=== PATIENT | female | born 1995 ===

== ENCOUNTER 2019-03-21 17:38 | Emergency (ER) | payer SELFPAY ==
--- NOTE | 2019-03-21 18:59 | EDM.PDOC ---
ED HPI GENERAL MEDICAL PROBLEM - General Chief Complaint: ENT Problem Stated Complaint: STREP Time Seen by Provider: 03/21/19 18:58 Source of Information: Reports: Patient History Limitations: Reports: No Limitations - History of Present Illness INITIAL COMMENTS - FREE TEXT/NARRATIVE: HISTORY AND PHYSICAL: History of present illness: Patient is a 23-year-old male presents to the ED with complaint of sore throat x2 weeks. Patient states that she has had a slight cough but denies any chest pain, shortness of breath, fevers, chills, nausea, vomiting, diarrhea. Patient is notably although she cannot tell me how far along she is and has not received any care. She denies any abdominal pain/cramping or vaginal bleeding or discharge or dysuria. Review of systems: As per history of present illness and below otherwise all systems reviewed and negative. Past medical history: As per history of present illness and as reviewed below otherwise noncontributory. Surgical history: As per history of present illness and as reviewed below otherwise noncontributory. Social history: No reported history of drug or alcohol abuse. Family history: As per history of present illness and as reviewed below otherwise noncontributory. Physical exam: General: Patient sitting comfortably in no acute distress and nontoxic appearing HEENT: Atraumatic, normocephalic, pupils reactive, negative for conjunctival pallor or scleral icterus, mucous membranes moist, throat clear, neck supple, nontender, trachea midline. No meningeal signs. Lungs: Clear to auscultation, breath sounds equal bilaterally, chest nontender. Heart: S1S2, regular, negative for clicks, rubs, or overt murmur. Abdomen: Soft, nondistended, nontender. Negative for masses or hepatosplenomegaly. Negative for costovertebral tenderness. No rigidity, rebound , guarding. Pelvis: Stable nontender. Genitourinary: Deferred. Rectal: Deferred. Extremities: Atraumatic, negative for cords or calf pain. Neurovascular unremarkable. Neuro: Awake, alert, oriented. Cranial nerves II through XII unremarkable. Cerebellum unremarkable. Motor and sensory unremarkable throughout. Exam nonfocal. Notes: Diagnostics: Strep Therapeutics: None Prescriptions: none Impression: Pharyngitis Plan: Take Tylenol and use lozenges as discussed Follow-up with [facility] Return to ED as needed as discussed Definitive disposition and diagnosis as appropriate pending reevaluation and review of above. Throat Pain Score (Numeric/FACES): 6 - Related Data Allergies Allergy/AdvReac Type Severity Reaction Status Date / Time No Known Allergies Allergy Verified 03/21/19 18:02 Home Meds: Home Meds . [No Known Home Meds] 03/21/19 [History] Past Medical History - Infectious Disease History Infectious Disease History: Reports: None - Past Surgical History Female Surgical History: Reports: Section Social & Family History - Family History Family Medical History: Noncontributory - Tobacco Use Smoking Status *Q: Never Smoker - Caffeine Use Caffeine Use: Reports: Soda - Recreational Drug Use Recreational Drug Use: No ED ROS ENT - Review of Systems Review Of Systems: Comprehensive ROS is negative, except as noted in HPI. ED EXAM, ENT - Physical Exam Exam: See Below (see Dictation) Course - Vital Signs Last Recorded V/S: Last Vital Signs Temp 97.5 F 03/21/19 19:04 Pulse 88 03/21/19 19:04 Resp 18 03/21/19 19:04 BP 130/60 03/21/19 19:04 Pulse Ox 97 03/21/19 19:04 - Orders/Labs/Meds Orders: Active Orders 24 hr Category Date Time Status CULTURE STREP A CONFIRMATION [RM] Stat Lab 03/21/19 18:00 Results STREP SCRN A RAPID W CULT CONF [RM] Stat Lab 03/21/19 18:00 Results Departure - Departure Time of Disposition: 18:58 Disposition: Home, Self-Care 01 Condition: Good Clinical Impression: Pharyngitis - Discharge Information Instructions: Pharyngitis, [id number] Referrals: PCP,None [Primary Care Provider] - Forms: ED Department Discharge Additional Instructions: The following information is given to patients seen in the emergency department who are being discharged to home. This information is to outline your options for follow-up care. We provide all patients seen in our emergency department with a follow-up referral. The need for follow-up, as well as the timing and circumstances, are variable depending upon the specifics of your emergency department visit. If you don't have a primary care physician on staff, we will provide you with a referral. We always advise you to contact your personal physician following an emergency department visit to inform them of the circumstance of the visit and for follow-up with them and/or the need for any referrals to a consulting specialist. The emergency department will also refer you to a specialist when appropriate. This referral assures that you have the opportunity for follow-up care with a specialist. All of these measure are taken in an effort to provide you with optimal care, which includes your follow-up. Under all circumstances we always encourage you to contact your private physician who remains a resource for coordinating your care. When calling for follow-up care, please make the office aware that this follow-up is from your recent emergency room visit. If for any reason you are refused follow-up, please contact the [facility] Emergency Department at and asked to speak to the emergency department charge nurse. [facility] [address] [place] [id number] [facility] Primary Care - [address] [id number] Take Tylenol and use lozenges as discussed Follow-up with [facility] Return to ED as needed as discussed Sepsis Event Note - Evaluation Sepsis Screening Result: No Definite Risk - Focused Exam Vital Signs: Vital Signs Temp Pulse Resp BP Pulse Ox 03/21/19 19:04 97.5 F 88 18 130/60 97 03/21/19 18:03 97.2 F 18 Date Exam was Performed: 03/21/19 Time Exam was Performed: 19:14 - My Orders Last 24 Hours: My Active Orders 03/21/19 18:00 CULTURE STREP A CONFIRMATION [RM] Stat STREP SCRN A RAPID W CULT CONF [] Stat - Assessment/Plan Last 24 Hours: My Active Orders 03/21/19 18:00 CULTURE STREP A CONFIRMATION [RM] Stat STREP SCRN A RAPID W CULT CONF [] Stat
== END 2019-03-21 19:10 | disposition home or self-care (01) ==
LOC: MW.ED 17:38
DX: O99.513 Diseases of the respiratory system complicating pregnancy, third trimester (principal); J02.9 Acute pharyngitis, unspecified
CPT/HCPCS: 87081; 87880-QW; 99283

== ENCOUNTER 2019-04-20 21:51 | Observation (INO) | payer MEDICAID | END 2019-04-20 23:45 | disposition home or self-care (01) | LOC: MW.OB 21:51 | PROVIDERS: ADMIT Obstetrics & Gynecology; ATTEND Obstetrics & Gynecology | DX: O47.9 False labor, unspecified (principal); Z3A.00 Weeks of gestation of pregnancy not specified | CPT/HCPCS: 59025 ==

== ENCOUNTER 2019-04-21 14:10 | Inpatient (IN) | payer MEDICAID ==
[2019-04-21] MEDS ORDERED: Citric Acid/Sodium Citrate Solution 30 ML Cup PO ONE (14:11)
[2019-04-21] MEDS ORDERED: Sodium Chloride 0.9% 10 ML Syringe FLUSH PRN (14:11)
[2019-04-21] MEDS ORDERED: Sodium Chloride 0.9% 10 ML SDV IV PRN (14:11)
[2019-04-21] MEDS ORDERED: Sodium Chloride 0.9% 2.5 ML Syringe FLUSH PRN (14:11)
[2019-04-21] MEDS ORDERED: Oxytocin/0.9 % Sodium Chloride 30 UNIT/500 ML BAG IV SCH (14:15)
[2019-04-21] MEDS ORDERED: ceFAZolin 2 GM in Premix Bag 1 BAG IV ONE (14:17)
[2019-04-21] MEDS ORDERED: Citric Acid/Sodium Citrate Solution 30 ML Cup ONE (14:30)
[2019-04-21] MEDS ORDERED: Phenylephrine/Normal Saline 100 MCG/ML 10 ML Syringe ONE (14:35)
[2019-04-21] MEDS ORDERED: Morphine PF 10 MG/10 ML SDV ONE (14:35)
[2019-04-21] MEDS ORDERED: Sodium Chloride 0.9% 20 ML ONE (14:35)
[2019-04-21] MEDS ORDERED: ceFAZolin 1 GM Vial ONE (14:35)
[2019-04-21] MEDS ORDERED: Oxytocin 10 Units/1 ML SDV ONE (14:38)
[2019-04-21] MEDS ORDERED: Ketorolac 30 MG/ML SDV ONE (14:38)
[2019-04-21] MEDS ORDERED: Ondansetron 4 MG/2 ML SDV ONE (14:38)
[2019-04-21] MEDS ORDERED: Acetaminophen/oxyCODONE 325-5 MG Tab PO PRN ×2 (14:50→17:10)
--- NOTE | 2019-04-21 14:50 | PCM.PREANE ---
Preanesthetic Assessment - Anesthesia/Transfusion/Family Hx Anesthesia History: Prior Anesthesia Without Reaction Family History of Anesthesia Reaction: No - Physical Assessment NPO Status Date: 04/21/19 NPO Status Time: 10:00 Height: 1.6 m Weight: 74.843 kg ASA Class: 1E - Allergies Allergies/Adverse Reactions: Allergies Allergy/AdvReac Type Severity Reaction Status Date / Time No Known Allergies Allergy Verified 04/20/19 22:05 - Acknowledgements Anesthesia Type Planned: Spinal Pt an Appropriate Candidate for the Planned Anesthesia: Yes Alternatives and Risks of Anesthesia Discussed w Pt/Guardian: Yes Pt/Guardian Understands and Agrees with Anesthesia Plan: Yes Additional Comments: Patient reports she has a heart murmur, and a procedure done while an infant. She reports no symptoms, and has an active lifestyle. Plan SAB anesthesia.Jossie Mandujano CRNA PreAnesthesia Questionnaire - Infectious Disease History Infectious Disease History: Reports: None - Past Surgical History Female Surgical History: Reports: Section - HOME MEDS Home Medications: Home Meds . [No Known Home Meds] 03/21/19 [History] - CURRENT (IN HOUSE) MEDS Current Meds: Current Medications Lactated Ringer's (Ringers, Lactated) 1,000 mls @ 500 mls/hr IV BOLUS [place] Oxytocin/Sodium Chloride (Oxytocin 30 Unit/500 Ml-Ns) 30 unit in 500 mls @ 250 mls/hr IV TITRATE [place] Sodium Chloride (Saline Flush) 10 ml FLUSH ASDIRECTED PRN PRN Reason: Keep Vein Open Sodium Chloride (Saline Flush) 2.5 ml FLUSH ASDIRECTED PRN PRN Reason: Keep Vein Open Sodium Chloride (Normal Saline) 10 ml IV ASDIRECTED PRN PRN Reason: IV Use Discontinued Medications Cefazolin Sodium (Ancef) Confirm Administered Dose 2 gm .ROUTE .STK-MED ONE Stop: 04/21/19 14:36 Citric Acid/Sodium Citrate (Bicitra Solution) 30 ml PO ONETIME ONE Stop: 04/21/19 14:12 Citric Acid/Sodium Citrate (Bicitra Solution) Confirm Administered Dose 30 ml .ROUTE .STK-MED ONE Stop: 04/21/19 14:31 Cefazolin Sodium/Dextrose 2 gm (/ Premix) 50 mls @ 100 mls/hr IV ONETIME ONE Stop: 04/21/19 14:46 Sodium Chloride (Normal Saline) Confirm Administered Dose 20 mls @ as directed .ROUTE .STK-MED ONE Stop: 04/21/19 14:36 Ketorolac Tromethamine (Toradol) Confirm Administered Dose 30 mg .ROUTE .STK- MED ONE Stop: 04/21/19 14:39 Morphine Sulfate (Duramorph Pf) Confirm Administered Dose 10 mg .ROUTE .STK-MED ONE Stop: 04/21/19 14:36 Ondansetron HCl (Zofran) Confirm Administered Dose 4 mg .ROUTE .STK-MED ONE Stop: 04/21/19 14:39 Oxytocin (Pitocin) Confirm Administered Dose 10 unit .ROUTE .STK-MED ONE Stop: 04/21/19 14:39 Phenylephrine HCl (Phenylephrine In Ns 100 Mcg/Ml) Confirm Administered Dose 4 mg .ROUTE .STK-MED ONE Stop: 04/21/19 14:36
[2019-04-21] MEDS ORDERED: Nalbuphine 10 MG/1 ML Vial IVPUSH PRN (14:51)
[2019-04-21] MEDS ORDERED: Naloxone 0.4 MG/ML Syringe IVPUSH PRN (14:51)
[2019-04-21] MEDS ORDERED: diphenhydrAMINE 50 MG/ML SDV IVPUSH PRN ×2 (14:51→17:10)
[2019-04-21] MEDS: Lactated Ringers 1,000 ML IV SCH ×3 (15:20→20:46)
--- NOTE | 2019-04-21 15:47 | PCM.LDHP ---
L&D History of Present Illness - General Date of Service: 04/21/19 Admit Problem/Dx: Patient Status Order with Admit Dx/Problem 04/21/19 14:15 Patient Status [ADT] Routine Admission Diagnosis/Problem Admission Diagnosis/Problem Source of Information: Patient History Limitations: Reports: No Limitations - History of Present Illness Improves with: Reports: None Worsens with: Reports: None Associated Symptoms: Reports: N - Related Data Allergies/Adverse Reactions: Allergies Allergy/AdvReac Type Severity Reaction Status Date / Time No Known Allergies Allergy Verified 04/20/19 22:05 Home Medications: Home Meds . [No Known Home Meds] 03/21/19 [History] Past Medical History Cardiovascular History: Reports: Heart Murmur, Stents Other Cardiovascular History: stents x 2 when baby Other OB/BYN History: C/S x 1 for breech - Infectious Disease History Infectious Disease History: Reports: None - Past Surgical History Female Surgical History: Reports: Section Social & Family History - Family History Family Medical History: Noncontributory - Tobacco Use Smoking Status *Q: Never Smoker - Caffeine Use Caffeine Use: Reports: Soda - Recreational Drug Use Recreational Drug Use: No H&P Review of Systems - Review of Systems: Review Of Systems: See Below General: Reports: No Symptoms HEENT: Reports: No Symptoms Pulmonary: Reports: No Symptoms Cardiovascular: Reports: No Symptoms Gastrointestinal: Reports: No Symptoms Genitourinary: Reports: No Symptoms Musculoskeletal: Reports: No Symptoms Skin: Reports: No Symptoms Psychiatric: Reports: No Symptoms Neurological: Reports: No Symptoms Hematologic/Lymphatic: Reports: No Symptoms Immunologic: Reports: No Symptoms L&D Exam - Exam Exam: See Below - Vital Signs Weight: 74.843 kg - OB Specific Fundal Height In cm: 37 Contraction Intensity: Mild to Moderate - Crow Score Crow Score Cervix Position: Anterior Crow Score Consistency: Soft Crow Score Effacement: 51-70% Crow Score Dilation: 1-2 cm Crow Score Infant's Station: -3 Crow Score Total: 7 - Exam General: Alert, Oriented HEENT: PERRLA, Conjunctiva Clear, EACs Clear, EOMI, Hearing Intact, Mucosa Moist & [place], Nares Patent, Normal Nasal Septum, Posterior Pharynx Clear, TMs Clear Neck: Supple, Trachea Midline Lungs: Clear to Auscultation, Normal Respiratory Effort Cardiovascular: Regular Rate, Regular Rhythm GI/Abdominal Exam: Normal Bowel Sounds, Soft, Non-Tender, No Organomegaly, No Distention, No Abnormal Bruit, No Mass, Pelvis Stable Rectal Exam: Normal Exam, Normal Rectal Tone Genitourinary: Normal external exam, Normal bimanual exam, Normal speculum exam Back Exam: Normal Inspection, Full Range of Motion Extremities: Normal Inspection, Normal Range of Motion, Non-Tender, No Pedal Edema, Normal Capillary Refill Skin: Warm, Dry, Intact Neurological: Cranial Nerves Intact, Reflexes Equal Bilateral Psychiatric: Alert, Normal Affect, Normal Mood - Patient Data Lab Results Last 24 hrs: Laboratory Results - last 24 hr 04/21/19 Range/Units 14:45 WBC 12.17 H (4.0-11.0) K/uL RBC 4.35 (4.30-5.90) M/uL Hgb 12.3 (12.0-16.0) g/dL Hct 35.7 L (36.0-46.0) % MCV 82.1 (80.0-98.0) fL MCH 28.3 (27.0-32.0) pg MCHC 34.5 (31.0-37.0) g/dL RDW Std Deviation 42.0 (28.0-62.0) fl RDW Coeff of Evangelina 14 (11.0-15.0) % Plt Count 187 (150-400) K/uL MPV 9.40 (7.40-12.00) fL Nucleated RBC % 0.0 /100WBC Nucleated RBCs # 0 K/uL Result Diagrams: 04/21/19 14:45 Problem List Initiated/Reviewed/Updated: Yes Orders Last 24hrs: Active Orders 24 hr Category Date Time Status Patient Status [ADT] Routine ADT 04/21/19 14:15 Active Bradycardia-Neuroaxis [employer] [RC] ROUTINE Care 04/21/19 14:52 Active Non Stress Test [RC] PER UNIT ROUTINE Care 04/21/19 14:15 Active Hypertension-Neuroaxis [employer] [RC] ROUTINE Care 04/21/19 14:52 Active Hypotension-Neuroaxis [employer] [RC] ROUTINE Care 04/21/19 14:52 Active Notify Provider Vital Signs [RC] PRN Care 04/21/19 14:11 Active Oxygen Therapy [RC] PER UNIT ROUTINE Care 04/21/19 14:52 Active Procedure Site Prep Instruct [RC] ASDIRECTED Care 04/21/19 14:15 Active Up ad Terra [RC] ASDIRECTED Care 04/21/19 14:15 Active Verify Patient Consent Obtain [RC] ASDIRECTED Care 04/21/19 14:15 Active Vital Signs [RC] PER UNIT ROUTINE Care 04/21/19 14:15 Active Vital Signs [RC] Q1H Care 04/21/19 14:52 Active RPR (SYPHILIS SERO) W/ RFLX [REF] Routine Lab 04/21/19 14:45 Received TYPE AND SCREEN [BBK] Routine Lab 04/21/19 14:45 Received Acetaminophen/oxyCODONE [Percocet 325-5 MG] Med 04/21/19 14:50 Active 1 tab PO Q4H PRN Lactated Ringers [Ringers, Lactated] 1,000 ml Med 04/21/19 14:15 Active IV BOLUS Nalbuphine [Nubain] Med 04/21/19 14:51 Active 5 mg IVPUSH Q3H PRN Naloxone [Narcan] Med 04/21/19 14:51 Active 0.1 mg IVPUSH ONETIME PRN Oxytocin/0.9 % Sodium Chloride [Oxytocin 30 Unit/500 ML Med 04/21/19 14:15 Active -NS] 30 unit in 500 ml IV TITRATE Sodium Chloride 0.9% [Normal Saline] Med 04/21/19 14:11 Active 10 ml IV ASDIRECTED PRN Sodium Chloride 0.9% [Saline Flush] Med 04/21/19 14:11 Active 10 ml FLUSH ASDIRECTED PRN Sodium Chloride 0.9% [Saline Flush] Med 04/21/19 14:11 Active 2.5 ml FLUSH ASDIRECTED PRN diphenhydrAMINE [Benadryl] Med 04/21/19 14:51 Active 25 mg IVPUSH Q4H PRN AN Neuroaxis Duramorph Precaution Reflex [OM.PC] PER Oth 04/21/19 15:00 Ordered UNIT ROUTINE AN Neuroaxis Duramorph Precaution Reflex [OM.PC] PER Oth 04/22/19 15:00 Ordered UNIT ROUTINE Peripheral IV Insertion Adult [OM.PC] Routine Oth 04/21/19 14:15 Ordered Schedule Procedure [COMM] Per Unit Routine Oth 04/21/19 14:15 Ordered Resuscitation Status Routine Resus Stat 04/21/19 14:11 Ordered Medication Orders Diphenhydramine HCl (Benadryl) 25 mg IVPUSH Q4H PRN PRN Reason: Itching Stop: 04/22/19 14:52 Lactated Ringer's (Ringers, Lactated) 1,000 mls @ 500 mls/hr IV BOLUS [place] Last Admin: 04/21/19 15:21 Dose: 999 mls/hr Infusion: 04/21/19 15:21 Dose: 999 mls/hr Admin: 04/21/19 15:20 Dose: 999 mls/hr Oxytocin/Sodium Chloride (Oxytocin 30 Unit/500 Ml-Ns) 30 unit in 500 mls @ 250 mls/hr IV TITRATE [place] Nalbuphine HCl (Nubain) 5 mg IVPUSH Q3H PRN PRN Reason: Pruritis Stop: 04/22/19 14:52 Naloxone HCl (Narcan) 0.1 mg IVPUSH ONETIME PRN PRN Reason: Respiratory Depression Stop: 04/22/19 14:52 Oxycodone/Acetaminophen (Percocet 325-5 Mg) 1 tab PO Q4H PRN PRN Reason: Pain (moderate 4-6) Sodium Chloride (Saline Flush) 10 ml FLUSH ASDIRECTED PRN PRN Reason: Keep Vein Open Sodium Chloride (Saline Flush) 2.5 ml FLUSH ASDIRECTED PRN PRN Reason: Keep Vein Open Sodium Chloride (Normal Saline) 10 ml IV ASDIRECTED PRN PRN Reason: IV Use Assessment/Plan Comment:: Uterine according to the patient loss. She is 40+ week the patient have no care she is only seen us in the clinic once and according to her she have one visit with her previous doctor where she will had EDC is in April 12, 2019. Patient so far presented to labor and delivery twice having contraction because of her previous section and had no record and she is in labor I am emanuel go and repeat her section today
[2019-04-21] MEDS ORDERED: Octyl 2-Cyanoacrylate 1 Tube ONE (16:52)
[2019-04-21] MEDS ORDERED: Ondansetron 4 MG/2 ML SDV IVPUSH PRN (17:10)
[2019-04-21] MEDS ORDERED: Methylergonovine 0.2 MG/1 ML Amp IM PRN (17:10)
[2019-04-21] MEDS ORDERED: Lanolin 100% Cream 7 GM Tube TOP PRN (17:10)
[2019-04-21] MEDS ORDERED: Misoprostol 200 MCG Tab RECTAL PRN (17:10)
[2019-04-21] MEDS ORDERED: Bisacodyl 10 MG Supp RECTAL PRN (17:10)
[2019-04-21] MEDS ORDERED: Tranexamic Acid 1,000 MG in Sodium Chloride 0.9% 100 ML IV PRN (17:10)
[2019-04-21] MEDS ORDERED: Oxytocin 10 Units/1 ML SDV IM PRN (17:10)
--- NOTE | 2019-04-21 17:13 | PCM.OPNOTE ---
- General Post-Op/Procedure Note Date of Surgery/Procedure: 04/21/19 Operative Procedure(s): Repeat C/section. Pre Op Diagnosis: [id number], limted care and prior C/section. Post-Op Diagnosis: Same Anesthesia Technique: Spinal Primary Surgeon: Tripp Kilpatrick Panel Gluer: Yuliya Brody EBL in mLs: 650 Complications: None Condition: Good
--- NOTE | 2019-04-21 17:50 | OR ---
SURGEON: Tripp Kilpatrick MD DATE OF PROCEDURE: PREOPERATIVE DIAGNOSES: Intrauterine at 40+ weeks, limited care, prior section, in active labor. POSTOPERATIVE DIAGNOSES: Intrauterine at 40+ weeks, limited care, prior section, in active labor. OPERATION PERFORMED: Repeat low transverse section. PRIMARY SURGEON: Tripp Kilpatrick MD. MANAGER RENTAL: Yuliya Brody CNM. ANESTHESIA: Spinal, Deric Mandujano and Dr. Nair. ESTIMATED BLOOD LOSS: 650 mL. COMPLICATIONS: None. HEARING AID CONSULTANT: . FINDINGS: Viable male fetus. score reported to be 8 and 9. Thick meconium noticed upon entering the amniotic cavity. INDICATIONS FOR SURGERY: This patient is 23. She had a very limited care. I had only seen her in the office once. She recently moved from, I think, [place]. She has seen a doctor at her hometown only one time. She was told that she was due on April 12, so that would make her 40+ weeks. She presented to the clinic today having contraction and later on sent to Labor and Delivery where she is documented to be in labor, so the decision is made to do repeat low transverse section. PROCEDURE IN DETAIL: The patient was brought to the OR, properly identified. After adequate level of spinal anesthesia with a Matamoros catheter in the bladder, the patient prepped and draped in sterile fashion as usual. Time-out taken, and the patient identified. A low transverse Pfannenstiel skin incision through the old scar was done. Amina fascia and rectus fascia were opened in direction of the incision. The two recti muscles were and peritoneal cavity was entered. Bladder flap was raised in the usual manner pushing the bladder away from the lower uterine segment. Low transverse uterine incision done and extended manually with hand. Fetus was in a vertex position, delivered without any problem. Meconium was noted, and the cried immediately, and then after clamping the cord, the fetus was handed to the resuscitating team. The placenta delivered spontaneous, complete, and intact and then repair of the lower uterine segment was done with 2-0 Vicryl continuous interlocking in 2 layers. Reperitonealization done with 2-0 Vicryl continuous. Then, the peritoneal cavity evacuated completely from all blood and blood clot and closed with 3-0 Vicryl continuous. The rectus fascia was closed with #1 PDS single strand continuous, Amina fascia with 3-0 Vicryl continuous, and the skin closed with 3- 0 Vicryl on a Rodo needle in a subcuticular fashion. Instrument and sponge count was correct. The patient tolerated the procedure well, went to recovery room in stable general condition. SHAKA / STAR /[id number]
--- NOTE | 2019-04-21 17:58 | PCM.POSTAN ---
POST ANESTHESIA ASSESSMENT - MENTAL STATUS Mental Status: Alert - RESPIRATORY Respiratory Status: Respiratory Rate WNL - CARDIOVASCULAR CV Status: Pulse Rate WNL - GASTROINTESTINAL GI Status: No Symptoms - POST OP HYDRATION Hydration Status: Adequate & Stable
[2019-04-21] MEDS: Acetaminophen/oxyCODONE 325-5 MG Tab PO PRN (18:31)
[2019-04-21] MEDS: Docusate Sodium 100 MG Cap PO SCH (23:04)
[2019-04-21] MEDS: Ketorolac 30 MG/ML SDV IVPUSH SCH (23:13)
[2019-04-22] MEDS: Lactated Ringers 1,000 ML IV SCH (04:21)
[2019-04-22] MEDS: Ketorolac 30 MG/ML SDV IVPUSH SCH ×3 (05:11→17:23)
--- NOTE | 2019-04-22 09:04 | PCM48HPAN ---
Post Anesthesia Note - EVALUATION WITHIN 48HRS OF ANESTHETIC Vital Signs in Normal Range: Yes Patient Participated in Evaluation: Yes Respiratory Function Stable: Yes Airway Patent: Yes Cardiovascular Function Stable: Yes Hydration Status Stable: Yes Pain Control Satisfactory: Yes Nausea and Vomiting Control Satisfactory: Yes Mental Status Recovered: Yes Vital Signs: Last Vital Signs Temp 36.4 C 04/22/19 04:39 Pulse 84 04/22/19 06:00 Resp 17 04/22/19 06:00 BP 123/62 04/22/19 04:39 Pulse Ox 99 04/22/19 06:00
[2019-04-22] MEDS: Docusate Sodium 100 MG Cap PO SCH ×2 (09:26→21:30)
--- NOTE | 2019-04-22 11:00 | PCM.PNPP ---
- General Info Date of Service: 04/22/19 Admission Dx/Problem (Free Text): Patient Status Order with Admit Dx/Problem 04/21/19 14:15 Patient Status [ADT] Routine Admission Diagnosis/Problem Admission Diagnosis/Problem Functional Status: Reports: Pain Controlled, Tolerating Diet, Ambulating, Urinating - Review of Systems General: Reports: No Symptoms HEENT: Reports: No Symptoms Pulmonary: Reports: No Symptoms Cardiovascular: Reports: No Symptoms Gastrointestinal: Reports: No Symptoms Genitourinary: Reports: No Symptoms Musculoskeletal: Reports: No Symptoms Skin: Reports: No Symptoms Neurological: Reports: No Symptoms Psychiatric: Reports: No Symptoms - General Info Date of Service: 04/22/19 - Patient Data Vital Signs - Most Recent: Last Vital Signs Temp 36.4 C 04/22/19 04:39 Pulse 84 04/22/19 06:00 Resp 17 04/22/19 06:00 BP 123/62 04/22/19 04:39 Pulse Ox 99 04/22/19 06:00 Weight - Most Recent: 74.843 kg I&O - Last 24 Hours: Intake & Output 04/21/19 04/22/19 04/22/19 22:59 06:59 14:59 Output Total 900 Balance -900 Lab Results - Last 24 Hours: Laboratory Results - last 24 hr 04/21/19 04/21/19 04/22/19 Range/Units 14:45 14:45 05:12 WBC 12.17 H (4.0-11.0) K/uL RBC 4.35 (4.30-5.90) M/uL Hgb 12.3 10.1 L (12.0-16.0) g/dL Hct 35.7 L 29.4 L (36.0-46.0) % MCV 82.1 (80.0-98.0) fL MCH 28.3 (27.0-32.0) pg MCHC 34.5 (31.0-37.0) g/dL RDW Std Deviation 42.0 (28.0-62.0) fl RDW Coeff of Evangelina 14 (11.0-15.0) % Plt Count 187 (150-400) K/uL MPV 9.40 (7.40-12.00) fL Nucleated RBC % 0.0 /100WBC Nucleated RBCs # 0 K/uL Blood Type A POSITIVE Antibody Screen NEGATIVE Med Orders - Current: Current Medications Bisacodyl (Dulcolax) 10 mg RECTAL ONETIME PRN PRN Reason: Constipation Diphenhydramine HCl (Benadryl) 25 mg IVPUSH Q4H PRN PRN Reason: Itching Stop: 04/22/19 14:52 Diphenhydramine HCl (Benadryl) 25 mg IVPUSH Q6H PRN PRN Reason: Itching or Nausea Docusate Sodium (Colace) 100 mg PO BID [facility] Last Admin: 04/22/19 09:26 Dose: 100 mg Emollient Ointment (Lansinoh Hpa) 0 gm TOP ASDIRECTED PRN PRN Reason: Sore Nipples Lactated Ringer's (Ringers, Lactated) 1,000 mls @ 500 mls/hr IV BOLUS [facility] Last Admin: 04/21/19 15:21 Dose: 999 mls/hr Oxytocin/Sodium Chloride (Oxytocin 30 Unit/500 Ml-Ns) 30 unit in 500 mls @ 250 mls/hr IV TITRATE [facility] Tranexamic Acid 1,000 mg/ (Sodium Chloride) 110 mls @ 660 mls/hr IV ONETIME PRN PRN Reason: Bleeding Lactated Ringer's (Ringers, Lactated) 1,000 mls @ 125 mls/hr IV ASDIRECTED [facility] Last Admin: 04/22/19 04:21 Dose: 125 mls/hr Ibuprofen (Motrin) 800 mg PO Q8H PRN PRN Reason: mild pain or fever Ketorolac Tromethamine (Toradol) 30 mg IVPUSH Q6H [facility] Stop: 04/22/19 17:16 Last Admin: 04/22/19 05:11 Dose: 30 mg Methylergonovine Maleate (Methergine) 0.2 mg IM ONETIME PRN PRN Reason: Excessive Vaginal Bleeding Misoprostol (Cytotec) 1,000 mcg RECTAL ONETIME PRN PRN Reason: excessive bleeding Nalbuphine HCl (Nubain) 5 mg IVPUSH Q3H PRN PRN Reason: Pruritis Stop: 04/22/19 14:52 Naloxone HCl (Narcan) 0.1 mg IVPUSH ONETIME PRN PRN Reason: Respiratory Depression Stop: 04/22/19 14:52 Ondansetron HCl (Zofran) 4 mg IVPUSH Q4H PRN PRN Reason: Nausea/Vomiting Oxycodone/Acetaminophen (Percocet 325-5 Mg) 1 tab PO Q4H PRN PRN Reason: Pain (moderate 4-6) Oxycodone/Acetaminophen (Percocet 325-5 Mg) 1 tab PO Q4H PRN PRN Reason: Pain (moderate 4-6) Oxycodone/Acetaminophen (Percocet 325-5 Mg) 2 tab PO Q4H PRN PRN Reason: Pain (moderate 4-6) Last Admin: 04/21/19 18:31 Dose: 2 tab Oxytocin (Pitocin) 10 unit IM ASDIRECTED PRN PRN Reason: Excessive Vaginal Bleeding Sodium Chloride (Saline Flush) 10 ml FLUSH ASDIRECTED PRN PRN Reason: Keep Vein Open Sodium Chloride (Saline Flush) 2.5 ml FLUSH ASDIRECTED PRN PRN Reason: Keep Vein Open Sodium Chloride (Normal Saline) 10 ml IV ASDIRECTED PRN PRN Reason: IV Use Discontinued Medications Cefazolin Sodium (Ancef) Confirm Administered Dose 2 gm .ROUTE .STK-MED ONE Stop: 04/21/19 14:36 Citric Acid/Sodium Citrate (Bicitra Solution) 30 ml PO ONETIME ONE Stop: 04/21/19 14:12 Last Admin: 04/21/19 16:08 Dose: 30 ml Citric Acid/Sodium Citrate (Bicitra Solution) Confirm Administered Dose 30 ml .ROUTE .STK-MED ONE Stop: 04/21/19 14:31 Cefazolin Sodium/Dextrose 2 gm (/ Premix) 50 mls @ 100 mls/hr IV ONETIME ONE Stop: 04/21/19 14:46 Sodium Chloride (Normal Saline) Confirm Administered Dose 20 mls @ as directed .ROUTE .STK-MED ONE Stop: 04/21/19 14:36 Ketorolac Tromethamine (Toradol) Confirm Administered Dose 30 mg .ROUTE .STK- MED ONE Stop: 04/21/19 14:39 Morphine Sulfate (Duramorph Pf) Confirm Administered Dose 10 mg .ROUTE .STK-MED ONE Stop: 04/21/19 14:36 Octyl Cyanoacrylate (Dermabond Advance) Confirm Administered Dose 1 applic .ROUTE .STK-MED ONE Stop: 04/21/19 16:53 Ondansetron HCl (Zofran) Confirm Administered Dose 4 mg .ROUTE .STK-MED ONE Stop: 04/21/19 14:39 Oxytocin (Pitocin) Confirm Administered Dose 10 unit .ROUTE .STK-MED ONE Stop: 04/21/19 14:39 Phenylephrine HCl (Phenylephrine In Ns 100 Mcg/Ml) Confirm Administered Dose 4 mg .ROUTE .STK-MED ONE Stop: 04/21/19 14:36 - Interaction Disposition, : in Room with Family Infant Interaction: Holding Infant Feeding: Bottle Fed Infant Support Person: Significant Other - Recovery Exam Fundal Tone: Firm Fundal Level: 1 Fingerbreadths Below Umbilicus Fundal Placement: Midline Lochia Amount: Small, Clots/Tissue Present Lochia Color: Serosa/Summer [place]ade Perineum Description: Intact, Minimal Bruising/Swelling Episiotomy/Laceration: None Bladder Status: Indwelling Catheter in Place Urinary Elimination: Indwelling Catheter - Exam General: Alert, Oriented, Cooperative, No Acute Distress Lungs: Clear to Auscultation, Normal Respiratory Effort. No: Decreased Breath Sounds Cardiovascular: Regular Rate, Regular Rhythm, No Murmurs GI/Abdominal Exam: Soft, Non-Tender Extremities: Normal Range of Motion Skin: Warm, Dry, Intact Wound/Incisions: Healing Well, No Drainage. No: Erythema Neurological: No New Focal Deficit, Normal Speech, Normal Tone, Strength Equal Bilateral, Sensation Intact Psy/Mental Status: Alert, Normal Affect, Normal Mood - Problem List & Annotations (1) delivery delivered SNOMED Code(s): 413013971 Code(s): O82 - ENCOUNTER FOR DELIVERY WITHOUT INDICATION Status: Acute Priority: High Current Visit: Yes - Problem List Review Problem List Initiated/Reviewed/Updated: Yes - Plan Plan:: Uterine according to the patient loss. She is 40+ week the patient have no care she is only seen us in the clinic once and according to her she have one visit with her previous doctor where she will had EDC is in April 12, 2019. Patient so far presented to labor and delivery twice having contraction because of her previous section and had no record and she is in labor I am emanuel go and repeat her section today PPD#1 A: VSS, AF, Incision intact and well approximated. Up out of bed. Lochia light. Stable P: Routine pp plan of care
[2019-04-22] MEDS: Acetaminophen/oxyCODONE 325-5 MG Tab PO PRN ×2 (15:02→21:30)
[2019-04-23] MEDS: Acetaminophen/oxyCODONE 325-5 MG Tab PO PRN ×2 (03:27→11:15)
[2019-04-23] MEDS: Ibuprofen 800 MG Tab PO PRN ×2 (03:27→11:14)
--- NOTE | 2019-04-23 07:31 | PCM.DCSUM1 ---
Discharge Summary - Hospital Course Free Text/Narrative:: Discharge home with . Follow up in 1 wk for post op visit and 6 weeks for visit. Diagnosis: Stroke: No Modified Amy Scale: No Symptoms at All Modified Bartow Scale Score: 0 - Discharge Data Discharge Date: 04/23/19 Discharge Disposition: Home, Self-Care 01 Condition: Good - Referral to Home Health Primary Care Physician: PCP None - Discharge Diagnosis/Problem(s) (1) delivery delivered SNOMED Code(s): 490001609 ICD Code: O82 - ENCOUNTER FOR DELIVERY WITHOUT INDICATION Status: Acute Priority: High Current Visit: Yes - Patient Summary/Data Operative Procedure(s) Performed: Repeat C/section. - Patient Instructions Diet: Usual Diet as Tolerated Activity: As Tolerated, No Strenuous Activities, Rest and Relax Today Driving: Do Not Drive Showering/Bathing: May Shower Wound/Incision Care: Keep Operative Site/Wound Site Clean and Dry Notify Provider of: Fever, Increased Pain, Swelling and Redness, Drainage, Nausea and/or Vomiting Other/Special Instructions: Discharge home with . Follow up in 1 wk for post op visit and 6 weeks for visit. - Discharge Plan *PRESCRIPTION DRUG MONITORING PROGRAM REVIEWED*: Not Applicable *COPY OF PRESCRIPTION DRUG MONITORING REPORT IN PATIENT MANNY: Not Applicable Home Medications: Home Meds . [No Known Home Meds] 03/21/19 [History] Oxygen Therapy Mode: Room Air Referrals: [facility] [Outside] Tripp Kilpatrick MD [Physician] - 04/28/19 3:30 pm (1 week follow up: April 28 at 3:30 pm 6 week follow up: June 01 at 3:30 pm) - Discharge Summary/Plan Comment DC Time >30 min.: Yes Discharge Summary/Plan Comment: Discharge home with . Follow up in 1 wk for post op visit and 6 weeks for visit. - General Info Date of Service: 04/23/19 Admission Dx/Problem (Free Text: Patient Status Order with Admit Dx/Problem 04/21/19 14:15 Patient Status [ADT] Routine Admission Diagnosis/Problem Admission Diagnosis/Problem Functional Status: Reports: Pain Controlled, Tolerating Diet, Ambulating, Urinating - Review of Systems General: Reports: No Symptoms HEENT: Reports: No Symptoms Pulmonary: Reports: No Symptoms Cardiovascular: Reports: No Symptoms Gastrointestinal: Reports: No Symptoms Genitourinary: Reports: No Symptoms Musculoskeletal: Reports: No Symptoms Skin: Reports: No Symptoms Neurological: Reports: No Symptoms Psychiatric: Reports: No Symptoms - Patient Data Vitals - Most Recent: Last Vital Signs Temp 36.8 C 04/23/19 04:36 Pulse 84 04/23/19 04:36 Resp 16 04/23/19 04:36 BP 118/86 04/23/19 04:36 Pulse Ox 99 04/23/19 04:36 Weight - Most Recent: 74.843 kg I&O - Last 24 hours: Intake & Output 04/22/19 04/23/19 04/23/19 22:59 06:59 14:59 Output Total 600 Balance -600 Med Orders - Current: Current Medications Bisacodyl (Dulcolax) 10 mg RECTAL ONETIME PRN PRN Reason: Constipation Diphenhydramine HCl (Benadryl) 25 mg IVPUSH Q6H PRN PRN Reason: Itching or Nausea Docusate Sodium (Colace) 100 mg PO BID [facility] Last Admin: 04/22/19 21:30 Dose: 100 mg Emollient Ointment (Lansinoh Hpa) 0 gm TOP ASDIRECTED PRN PRN Reason: Sore Nipples Lactated Ringer's (Ringers, Lactated) 1,000 mls @ 500 mls/hr IV BOLUS [facility] Last Admin: 04/21/19 15:21 Dose: 999 mls/hr Oxytocin/Sodium Chloride (Oxytocin 30 Unit/500 Ml-Ns) 30 unit in 500 mls @ 250 mls/hr IV TITRATE [facility] Tranexamic Acid 1,000 mg/ (Sodium Chloride) 110 mls @ 660 mls/hr IV ONETIME PRN PRN Reason: Bleeding Lactated Ringer's (Ringers, Lactated) 1,000 mls @ 125 mls/hr IV ASDIRECTED [facility] Last Admin: 04/22/19 04:21 Dose: 125 mls/hr Ibuprofen (Motrin) 800 mg PO Q8H PRN PRN Reason: mild pain or fever Last Admin: 04/23/19 03:27 Dose: 800 mg Methylergonovine Maleate (Methergine) 0.2 mg IM ONETIME PRN PRN Reason: Excessive Vaginal Bleeding Misoprostol (Cytotec) 1,000 mcg RECTAL ONETIME PRN PRN Reason: excessive bleeding Ondansetron HCl (Zofran) 4 mg IVPUSH Q4H PRN PRN Reason: Nausea/Vomiting Oxycodone/Acetaminophen (Percocet 325-5 Mg) 1 tab PO Q4H PRN PRN Reason: Pain (moderate 4-6) Oxycodone/Acetaminophen (Percocet 325-5 Mg) 1 tab PO Q4H PRN PRN Reason: Pain (moderate 4-6) Oxycodone/Acetaminophen (Percocet 325-5 Mg) 2 tab PO Q4H PRN PRN Reason: Pain (moderate 4-6) Last Admin: 04/23/19 03:27 Dose: 2 tab Oxytocin (Pitocin) 10 unit IM ASDIRECTED PRN PRN Reason: Excessive Vaginal Bleeding Sodium Chloride (Saline Flush) 10 ml FLUSH ASDIRECTED PRN PRN Reason: Keep Vein Open Sodium Chloride (Saline Flush) 2.5 ml FLUSH ASDIRECTED PRN PRN Reason: Keep Vein Open Sodium Chloride (Normal Saline) 10 ml IV ASDIRECTED PRN PRN Reason: IV Use Discontinued Medications Cefazolin Sodium (Ancef) Confirm Administered Dose 2 gm .ROUTE .STK-MED ONE Stop: 04/21/19 14:36 Citric Acid/Sodium Citrate (Bicitra Solution) 30 ml PO ONETIME ONE Stop: 04/21/19 14:12 Last Admin: 04/21/19 16:08 Dose: 30 ml Citric Acid/Sodium Citrate (Bicitra Solution) Confirm Administered Dose 30 ml .ROUTE .STK-MED ONE Stop: 04/21/19 14:31 Diphenhydramine HCl (Benadryl) 25 mg IVPUSH Q4H PRN PRN Reason: Itching Stop: 04/22/19 14:52 Cefazolin Sodium/Dextrose 2 gm (/ Premix) 50 mls @ 100 mls/hr IV ONETIME ONE Stop: 04/21/19 14:46 Sodium Chloride (Normal Saline) Confirm Administered Dose 20 mls @ as directed .ROUTE .STK-MED ONE Stop: 04/21/19 14:36 Ketorolac Tromethamine (Toradol) Confirm Administered Dose 30 mg .ROUTE .STK- MED ONE Stop: 04/21/19 14:39 Ketorolac Tromethamine (Toradol) 30 mg IVPUSH Q6H [facility] Stop: 04/22/19 17:16 Last Admin: 04/22/19 17:23 Dose: 30 mg Morphine Sulfate (Duramorph Pf) Confirm Administered Dose 10 mg .ROUTE .STK-MED ONE Stop: 04/21/19 14:36 Nalbuphine HCl (Nubain) 5 mg IVPUSH Q3H PRN PRN Reason: Pruritis Stop: 04/22/19 14:52 Naloxone HCl (Narcan) 0.1 mg IVPUSH ONETIME PRN PRN Reason: Respiratory Depression Stop: 04/22/19 14:52 Octyl Cyanoacrylate (Dermabond Advance) Confirm Administered Dose 1 applic .ROUTE .STK-MED ONE Stop: 04/21/19 16:53 Ondansetron HCl (Zofran) Confirm Administered Dose 4 mg .ROUTE .STK-MED ONE Stop: 04/21/19 14:39 Oxytocin (Pitocin) Confirm Administered Dose 10 unit .ROUTE .STK-MED ONE Stop: 04/21/19 14:39 Phenylephrine HCl (Phenylephrine In Ns 100 Mcg/Ml) Confirm Administered Dose 4 mg .ROUTE .STK-MED ONE Stop: 04/21/19 14:36 - Exam General: Reports: Alert, Oriented, Cooperative, No Acute Distress Lungs: Reports: Normal Respiratory Effort GI/Abdominal Exam: Soft, Non-Tender (Female) Exam: Deferred Rectal (Female) Exam: Deferred Back Exam: Reports: Normal Inspection, Full Range of Motion Extremities: Normal Range of Motion, No Pedal Edema Skin: Reports: Warm, Dry, Intact Wound/Incisions: Reports: Healing Well, No Drainage. Denies: Erythema Neurological: Reports: No New Focal Deficit, Normal Speech, Normal Tone, Sensation Intact Psy/Mental Status: Reports: Alert, Normal Affect, Normal Mood
== END 2019-04-23 13:31 | disposition home or self-care (01) | DRG 788 ==
LOC: MW.OB 14:10
PROVIDERS: ADMIT Obstetrics & Gynecology; ATTEND Obstetrics & Gynecology
PROC: 10D00Z1 Extraction of Products of Conception, Low, Open Approach (ICD-10-PCS; principal; 2019-04-21)
DX: O34.211 Maternal care for low transverse scar from previous cesarean delivery (principal); O77.0 Labor and delivery complicated by meconium in amniotic fluid; Z37.0 Single live birth; Z3A.40 40 weeks gestation of pregnancy
CPT/HCPCS: 01961; 36415; 51702; 59025; 85014; 85018; 85027; 86592; 86850; 86900; 86901; A9270-GY; J0690; J1885; J2270; J2370; J2405; J2590; J7120